=== PATIENT | male | born 1970 | race African-American/Black ===

== ENCOUNTER 2019-03-15 15:58 | Emergency (ER) | payer SELFPAY ==
[~2019-03-15] VITALS: Ht 180.3 cm; Wt 72.0 kg
[2019-03-15] MEDS ORDERED: ACETAMINOPHEN 325MG TABLET PO ONE (19:30)
[2019-03-15 20:05] VITALS: BP 124/87
== END 2019-03-15 20:10 | disposition home or self-care (01) ==
LOC: ER 15:58
DX: S01.81XA Laceration without foreign body of other part of head, initial encounter (principal); Y04.0XXA Assault by unarmed brawl or fight, initial encounter; Y93.89 Activity, other specified; Y92.89 Other specified places as the place of occurrence of the external cause; Y99.8 Other external cause status
CPT/HCPCS: 12013; 70486; 99284

== ENCOUNTER 2019-03-17 14:48 | Emergency (ER) | payer SELFPAY ==
[~2019-03-17] VITALS: Ht 170.2 cm; Wt 71.0 kg
[2019-03-17] MEDS ORDERED: IBUPROFEN 600MG TABLET PO ONE (15:30)
[2019-03-17 16:53] VITALS: BP 111/63
== END 2019-03-17 17:00 | disposition home or self-care (01) ==
LOC: ER 14:48
DX: S01.81XD Laceration without foreign body of other part of head, subsequent encounter (principal); M25.561 Pain in right knee; Y04.0XXD Assault by unarmed brawl or fight, subsequent encounter
CPT/HCPCS: 73562; 99283

== ENCOUNTER 2019-03-20 15:35 | Emergency (ER) | payer SELFPAY ==
[~2019-03-20] VITALS: Ht 177.8 cm; Wt 70.0 kg
[2019-03-20 18:29] VITALS: BP 109/65
== END 2019-03-20 18:31 | disposition home or self-care (01) ==
LOC: ER 15:35
DX: S01.112D Laceration without foreign body of left eyelid and periocular area, subsequent encounter (principal); X58.XXXD Exposure to other specified factors, subsequent encounter
CPT/HCPCS: 99281

== ENCOUNTER 2019-04-14 14:24 | Emergency (ER) | payer SELFPAY ==
[~2019-04-14] VITALS: Ht 177.8 cm; Wt 70.0 kg
[2019-04-14 15:50] VITALS: BP 126/61
== END 2019-04-14 16:00 | disposition home or self-care (01) ==
LOC: ER 14:24
DX: M25.561 Pain in right knee (principal)
CPT/HCPCS: 99281